=== PATIENT | male | born 1970 | race Caucasian/White ===

== ENCOUNTER 2016-05-03 08:25 | Day surgery (SDC) | payer OTHER ==
[~2016-05-03] VITALS: Ht 177.8 cm; Wt 122.5 kg
[~2016-05-03 08:25] MED LIST: ATORVASTATIN CA10 MG PO; DILTIAZEM 24HR180 MG PO; GLIMEPIRIDE1 MG PO; GLIPIZIDE5 MG PO; HYDROCHLOROTHIA25 MG PO; LISINOPRIL40 MG PO; LO-DOSE ASPIRIN81 M2 PO; METFORMIN HCL1000 MG PO; VITAMIN D-32000 UNI2 PO
[2016-05-03 08:55] VITALS: BP 139/99
[2016-05-03 09:13] LABS: POINT-OF-CARE METER ID UU14174212
[2016-05-03 13:35] LABS: POINT-OF-CARE METER ID UU13113675
[2016-05-03 15:51] VITALS: BP 129/85
[2016-05-03 16:47] VITALS: BP 144/85
[2016-05-03 18:00] VITALS: BP 129/75
[2016-05-03 19:51] VITALS: BP 142/74
== END 2016-05-03 20:06 | disposition home or self-care (01) ==
LOC: SDC 08:25
PROVIDERS: Surgery
DX: K43.9 Ventral hernia without obstruction or gangrene (principal); K95.09 Other complications of gastric band procedure; K66.0 Peritoneal adhesions (postprocedural) (postinfection); E66.01 Morbid (severe) obesity due to excess calories; Z68.41 Body mass index [BMI] 40.0-44.9, adult; I10 Essential (primary) hypertension; Z79.84 Long term (current) use of oral hypoglycemic drugs; Z79.82 Long term (current) use of aspirin; Z79.899 Other long term (current) drug therapy; Z88.0 Allergy status to penicillin
CPT/HCPCS: 82948; C1781; J0330; J1170; J1580; J1644; J2250; J2405; J2710; J3010; J7050; S0020